=== PATIENT | male | born 1970 | race Caucasian/White ===

== ENCOUNTER → 2017-10-21 | Outpatient (CLI) | payer OTHER ==
[~2017-10-21] MED LIST: AMARYL2 MG; CARDIZEM CD120 MG PO; CARTIA XT120 M1 PO; COZAAR 50 MG TA50 M2; DILTIAZEM 24HR360 M1 PO; GLUCOPHAGE XR500 MG; HYDROCHLOROTH12.5 M1 PO; IMDUR 30 MG TAB30 M1 PO; METFORMIN HCL500 MG PO; PRAVACHOL40 MG PO; TOPROL XL50 MG PO; [UNRECOGNIZED DRUG - OTHER]
== END ==
LOC: RAD 10:49
DX: R91.8 Other nonspecific abnormal finding of lung field (principal)

== ENCOUNTER → 2017-11-03 | Outpatient (CLI) | payer OTHER | LOC: CAT 06:40 | DX: J98.4 Other disorders of lung (principal); R91.8 Other nonspecific abnormal finding of lung field ==